=== PATIENT | female | born 1935 | race Caucasian/White ===

== ENCOUNTER → 2017-06-23 | Outpatient (CLI) | payer MEDICARE ==
--- NOTE | 2017-06-23 11:11 | RADIOLOGY REPORT (SQ) ---
EXAM DESCRIPTION: U/S RETROPERITON (RENAL/AORTA) COMPLETED DATE/TIME: 06/23/2017 11:01 am REASON FOR STUDY: CKD IV (N18.9), HEART FAILURE (I50.9) N18.4 CHRONIC KIDNEY DISEASE, STAGE 4 (ELDA RE) E11.9 TYPE 2 DIABETES MELLITUS WITHOUT COMPLICATIONS I50.9 HEART FAILURE, UNSPECIFIED COMPARISON: None. TECHNIQUE: Dynamic and static grayscale images acquired of the kidneys and bladder and recorded on P ACS. Additional selected color Doppler and spectral images recorded. LIMITATIONS: Left upper quadrant bowel gas FINDINGS: RIGHT KIDNEY: 10.6 cm in length, with normal cortical echogenicity and thickness. No cecile d or suspicious masses. No hydronephrosis. No calcifications. LEFT KIDNEY: Limited visualization left kidney. No gross hydronephrosis. Normal cortical thickness . No stones. BLADDER: Decompressed, not visualized OTHER FINDINGS: Borderline splenomegaly 13 cm in length. There is a small amount of ascites in the r ight upper quadrant left upper quadrant and left lower quadrant. IMPRESSION: No hydronephrosis. Small amount of ascites Borderline splenomegaly TECHNICAL DOCUMENTATION: JOB ID: [id number] [employer]- All Rights Reserved
== END ==
LOC: RAD 10:05
PROVIDERS: ATTEND Physician Assistant Medical
DX: N17.9 Acute kidney failure, unspecified (principal); E11.22 Type 2 diabetes mellitus with diabetic chronic kidney disease; N18.4 Chronic kidney disease, stage 4 (severe); I50.9 Heart failure, unspecified; E87.5 Hyperkalemia; R60.9 Edema, unspecified
CPT/HCPCS: 76770